=== PATIENT | male | born 1970 | race Caucasian/White ===

== ENCOUNTER 2016-09-13 15:30 | Emergency (ER) | payer SELFPAY ==
[~2016-09-13] VITALS: Ht 175.3 cm; Wt 100.2 kg
[~2016-09-13 15:30] MED LIST: BACT800T5 PO; LASI20TA PO; NADO40TA PO; RIFA550 PO; SPIR25TA PO
[2016-09-13 15:35] VITALS: BP 144/90; PULSE 87; RESP 16; TEMP 98.3; O2SAT 95
[2016-09-13] MEDS ORDERED: NADO40TA PO (15:54)
--- NOTE | 2016-09-13 16:41 | PD ---
HPI Chief Complaint: Foreign Body Time Seen by Provider: 16:00 Travel History International Travel<30 days: No Contact w/Intl Traveler<30days: No Traveled to known affect area: No History of Present Illness HPI 45-year-old male presents to the emergency room for evaluation of foreign body lure to the right thumb that occurred just prior to arrival. Patient was trying to remove the fishing lure from a tree when the tree slipped and it punctured his finger. He was unable to remove it himself. Patient came straight to the emergency room and has not cleaned it. Last tetanus was 2-3 years ago. Patient reports minimal to moderate pain that is worsening as he is sitting in the ER. PFSH Past Medical History Cancer: No Cardiovascular Problems: No Cirrhosis: Yes Cerebrovascular Accident: No Diminished Hearing: No Endocrine: No Gastrointestinal Disorders: Yes (GASTROPYRISIS) Genitourinary: Yes (difficulty with urination recently) Hepatitis: Yes (HEP A) Immune Disorder: No Implanted Vascular Access Dvce: No Musculoskeletal: No Neurologic: Yes (tremors-sees dr Zafar for this) Psychiatric: No Reproductive: No Respiratory: No Migraines: No Pancreatitis: Yes Seizures: No Tetanus Vaccination: < 5 Years Influenza Vaccination: Yes Past Surgical History Abdominal Surgery: No AICD: No Arteriovenous Shunt: No Cardiac Surgery: No Ear Surgery: Yes (tympanostomy tube) Endocrine Surgery: No Eye Surgery: No Genitourinary Surgery: No Gynecologic Surgery: No Insulin Pump: No Joint Replacement: No Oral Surgery: No Pacemaker: No Thoracic Surgery: No Tonsillectomy: Yes Tympanostomy Tube: Yes Other Surgery: Yes Social History Alcohol Use: Yes ("RARELY") Tobacco Use: Yes ("RARELY") Substance Use: No Allergies-Medications (Allergen,Severity, Reaction): Coded Allergies: No Known Allergies (Verified , 09/13/16) Reported Meds & Prescriptions Reported Meds & Active Scripts Active Reported Nadolol 40 Mg Tab 40 Mg PO DAILY Review of Systems Except as stated in HPI: all other systems reviewed are Neg Physical Exam Narrative GENERAL: Well-nourished, well-developed male in no acute distress. Afebrile. Ambulatory. SKIN: Focused skin assessment warm/dry. There is a hook from a 3 prong fish hook sticking superficially into the right thumb. Nonbleeding. The hook does not extend past the fat pad. HEAD: Normocephalic. EYES: No scleral icterus. No injection or drainage. NECK: Supple, trachea midline. No JVD or lymphadenopathy. CARDIOVASCULAR: Regular rate and rhythm without murmurs, gallops, or rubs. RESPIRATORY: Breath sounds equal bilaterally. No accessory muscle use. PSYCHIATRIC: No delusional thought processes. No hallucinations. Data Data Last Documented VS Vital Signs Date Time Temp Pulse Resp B/P Pulse Ox O2 Delivery O2 Flow Rate FiO2 09/13/16 15:35 98.3 87 16 144/90 95 MDM Medical Decision Making Medical Screen Exam Complete: Yes Emergency Medical Condition: Yes Medical Record Reviewed: Yes Differential Diagnosis Foreign body, fracture, cellulitis Narrative Course 45-year-old male presents to the emergency room for evaluation of a fishing hook sticking out of his right thumb. Physical exam reveals a superficial hook that was removed without difficulty. Patient will be discharged with Keflex. Told to follow up with PCP or return for worsening symptoms. He understands and agrees to plan. Procedures Procedure Narrative INCISION AND DRAINAGE OF ABSCESS: The area was prepped with chlorhexidine. A subcutaneous wheal of 1% lidocaine with a total number 1 mL was used to anesthetize the area properly. A number 11 scalpel was used to make a 0.3 cm incision just below the foreign body. The foreign body was pulled back and removed without difficulty. The wound was irrigated with normal saline and a sterile dressing was applied. Diagnosis Primary Impression: SUPERFICIAL FOREIGN BODY OF RIGHT THUMB, INITIAL ENCOUNTER Referrals: Primary Care Physician Patient Instructions: General Instructions, Soft Tissue Foreign Body (ED) Additional Instructions: Rest and drink plenty of fluids. Take Keflex as directed, until gone. Follow up with a primary care physician. Return to emergency room for worsening symptoms, as discussed. Med/Other Pt SpecificInfo: Prescription(s) given Disposition: DISCHARGE HOME Condition: Stable More Chaparro Sep 13, 2016 16:41
[2016-09-13] MEDS ORDERED: CEPH-460 PO (16:46)
== END 2016-09-13 16:50 | disposition home or self-care (01) ==
LOC: PHEFT 15:30
DX: S60.351A Superficial foreign body of right thumb, initial encounter (principal); W45.8XXA Other foreign body or object entering through skin, initial encounter; Y93.89 Activity, other specified
CPT/HCPCS: 10120